=== PATIENT | female | born 1990 | race Caucasian/White ===

== ENCOUNTER 2016-10-18 11:00 | Emergency (ER) | payer BC ==
--- NOTE | ~2016-10-18 | ER ---
PATIENT'S NAME: DOUG ARAUJO [facility] AGE: 26 Y [address] ROOM: [place] [id number] LOCATION: ED ADMIT DATE: 10/18/2016 ER/Outpatient Report DISCHARGE DATE: 10/18/2016 FAMILY PHYSICIAN: Ventura Marley MD ATTENDING PHYSICIAN: Irwin Palacios CHIEF COMPLAINT: Abdominal pain. HISTORY OF PRESENT ILLNESS: The patient states that throughout the day she has had severe abdominal pain, rated 10/10. The pain is located in the right side in the upper abdominal region. It does radiate up and down. She has not taken anything for this at home. She has had some diarrhea associated with this. No one else at home has similar symptoms. She states that it is fluctuating in intensity, but does not ever go away. It is cramp like in nature. PAST MEDICAL HISTORY: Documented on the record and reviewed by me. SOCIAL HISTORY: Documented on the record and reviewed by me. MEDICATIONS: Documented on the record and reviewed by me. ALLERGIES: DOCUMENTED ON THE RECORD AND REVIEWED BY ME. REVIEW OF SYSTEMS: All systems reviewed and negative except as noted in the HPI. PHYSICAL EXAMINATION: VITAL SIGNS: Blood pressure 139/65, pulse 113, respiratory rate is 20, temperature is 97.7, and SpO2 is 99% on room air. Pain is 10/10. GENERAL: Age appropriate female, in no acute distress, lying on her left side in a position on the bed with some moderate pain. NEUROLOGIC: Awake and alert. GCS is 15. No focal deficits or asymmetry on exam. HEENT: Normocephalic and atraumatic. Eyes are PERRL. Oropharynx is clear. NECK: Supple. Trachea is midline. CHEST: Heart is regular rate and rhythm with borderline tachycardia. No murmurs appreciated. Lungs are clear to auscultation bilaterally with no rhonchi, wheezes, or rales. BACK: Nontender to palpation throughout. No CVA tenderness. PATIENT'S NAME: DOUG ARAUJO [facility] AGE: 26 Y [address] ROOM: [place] [address] LOCATION: ED ADMIT DATE: 10/18/2016 ER/Outpatient Report DISCHARGE DATE: 10/18/2016 FAMILY PHYSICIAN: Ventura Marley MD ATTENDING PHYSICIAN: Irwin Palacios ABDOMEN: Soft with mild tenderness in the right upper quadrant without Gutierrez sign. No tenderness at McBurney's point. Obturator and psoas signs are negative. No masses appreciable. Bowel sounds present in all 4 quadrants. EXTREMITIES: Warm and well perfused with no erythema or edema. SKIN: Warm, dry, and intact with no rashes or breakdown. LABORATORY DATA AND X-RAYS: CT scan of the abdomen is without abnormalities per Radiology. Right upper quadrant ultrasound shows no hepatobiliary pathology. Labs are notable for the following. Sodium 140, potassium 4.2, chloride 107, CO2 is 23, BUN is 13, and creatinine 1.0. GFR greater than 60. LFTs are within normal limits. Total bilirubin 0.9, AST is 12, ALT is 20. Amylase and lipase are 40 and 126 respectively. GGT is 20. CRP is 0.81. Procalcitonin is below threshold. WBC is 14.7, hemoglobin 15.6, and platelets of 245. INR is 1.0. Serum lactate is 2.0. Urinalysis with no leukocytes, nitrites, 150 blood on the micro, 0 to 2 blood on the dip, few bacteria, 2 to 5 epithelial cells. Negative test. IMPRESSION: Enteritis with abdominal pain. EMERGENCY DEPARTMENT COURSE: The patient was evaluated as above. Her pain is focused in the upper portion of the abdomen. She does not have urinary symptoms and her presentation is not consistent with vaginitis or torsion. With a negative test, it is highly unlikely the patient has an ectopic . Her labs, ultrasound, and CT scan exclude ureterolithiasis or nephrolithiasis. There is no hepatobiliary pathology appreciated on labs or imaging. At this time, the patient does have some evidence of diarrhea. The course is most consistent with acute food poisoning versus viral. She was given some fluids and Toradol in the emergency department with marked improvement in her symptoms. She will be discharged with tramadol and Zofran. She should follow up with her primary care provider as needed. Return immediately if worse. MD CIARRA [facility]/caleb /[id number] d: 10/18/16 2244 t: 10/21/16 1733, OUTPATIENT REPORT
[~2016-10-18 11:00] MED LIST: ADDERALL XR 2020 MG PO; BACTRIM DS1 TAB PO; CLINDAMYCIN HC300 MG PO; DEPO PROVER150 MG/ML IM; NORCO 5-325 MG1 TAB PO; PERCOCET 7.5-31 EACH PO; SUPERVITE EC CAP1 MG PO; TYLENOL EXTRA500 MG PO
[2016-10-18 11:29] LABS: BILIRUBIN URINE NEGATIVE (NEGATIVE); BLOOD URINE 150 /UL (NEGATIVE); COLOR URINE YELLOW (YELLOW); GLUCOSE URINE NEGATIVE (NEGATIVE); KETONE URINE NEGATIVE (NEGATIVE); LEUKOCYTES URINE NEGATIVE /UL (NEGATIVE); NITRITE URINE NEGATIVE (NEGATIVE); PROTEIN URINE NEGATIVE (NEGATIVE); SPEC GRAVITY URINE 1.015 (1.003-1.035); TURBIDITY URINE CLEAR (CLEAR); UROBILINOGEN URINE NORMAL (NORMAL)
[2016-10-18 11:44] LABS: RBC URINE 0-2 #/HPF (NEGATIVE); WBC URINE 0-2 #/HPF (NEGATIVE)
[2016-10-18 11:45] LABS: BACTERIA URINE FEW (NEGATIVE); MUCUS URINE 2+ (NEGATIVE)
[2016-10-18 11:52] LABS: BASOPHIL % 0.2 %; EOSINOPHIL % 0.1 %; HEMATOCRIT 43.9 % (33.0-46.0); HEMOGLOBIN 15.6 g/dL (11.0-15.0); IMMATURE GRANULOCYTE # 0.1 K/uL (0.0-0.3); IMMATURE GRANULOCYTE % 0.4 %; LYMPHOCYTE % 7.1 %; MCHC 35.5 gm/dL (32.0-36.5); MCV 87.3 fl (83.0-98.0); MONOCYTE # 0.5 K/uL (0.0-1.0); MONOCYTE % 3.5 %; MPV 9.9 fl (9.4-12.4); NEUTROPHIL % 88.7 %; NRBC % 0 /100WBC (0-0.00); PLATELET COUNT 245 K/uL (150-450); RBC 5.03 M/uL (3.50-5.00); RDW-CV 12.5 % (11.9-14.6); WBC 14.7 K/uL (4.0-11.0)
[2016-10-18 11:58] LABS: PTT 27 SECONDS (25-32)
[2016-10-18 12:08] LABS: ALBUMIN 4.9 gm/dL (3.5-5.0); ALK PHOS 62 IU/L (33-138); ALT 20 IU/L (12-78); ANION GAP 14.2 (10.0-19.0); AST 12 IU/L (10-40); BLOOD UREA NITROGEN 13 mg/dL (6-24); CALCIUM 9.1 mg/dL (8.5-10.5); CHLORIDE 107 mMol/L (96-110); CO2 23 mMol/L (22-32); ESTIMATED GFR (MDRD EQUATION) > 60; POTASSIUM 4.2 mMol/L (3.7-5.1); SODIUM 140 mMol/L (135-145); TOTAL BILIRUBIN 0.9 mg/dL (0.0-1.5); TOTAL PROTEIN 8.4 g/dL (6.0-8.4)
== END 2016-10-18 13:00 | disposition disaster alternative care site (69) ==
LOC: GMED 11:00
PROVIDERS: Emergency Medicine
DX: K52.9 Noninfective gastroenteritis and colitis, unspecified (principal)
CPT/HCPCS: J1885

== ENCOUNTER 2017-03-20 12:35 | Emergency (ER) | payer OTHER ==
--- NOTE | ~2017-03-20 | ER ---
PATIENT'S NAME: DOUG ARAUJO [facility] AGE: 27 Y [address] ROOM: [place] [address] LOCATION: [facility] ADMIT DATE: 03/20/2017 ER/Outpatient Report DISCHARGE DATE: 03/20/2017 FAMILY PHYSICIAN: Ventura Marley MD ATTENDING PHYSICIAN: Lenny Workman Time of Arrival: 1238 hours. Time of Exam: 1238 hours. CHIEF COMPLAINT: Vaginal bleeding. HISTORY OF PRESENT ILLNESS: The patient states just prior to arrival while she was at work she noticed a funny feeling in the vaginal area, then had vaginal bleeding. Reports that she will be 12 weeks' as of Friday with twins. She is scheduled to have a cerclage done tomorrow with Dr. Cid. Reports that she is with twins. She is 2, para 1, AB 0. Due date is 10/04/2017. She is unsure of when her last menstrual period was as she was on Depo-Provera to prevent when she became . She denies having any cramping or discomfort. Has not had any pelvic pain. Last ended in normal vaginal delivery. ALLERGIES: NO KNOWN ALLERGIES. CURRENT MEDICATIONS: 1. Zofran. 2. vitamins. PAST SURGERIES: Negative. SOCIAL HISTORY: Benign. Works at [employer] office. Denies having any recent sexual intercourse. Dr. Marley is her primary provider. Dr. Cid is her OB provider. REVIEW OF SYSTEMS: Negative other than those mentioned in the HPI. PHYSICAL EXAMINATION: VITAL SIGNS: She weighed 84 kg. Blood pressure is 144/91, pulse of 109, respirations are 16, temperature of 99.6 tympanic, and O2 saturation was 99% on room air. PATIENT'S NAME: DOUG ARAUJO [facility] AGE: 27 Y [address] ROOM: [place] [address] LOCATION: [facility] ADMIT DATE: 03/20/2017 ER/Outpatient Report DISCHARGE DATE: 03/20/2017 FAMILY PHYSICIAN: Ventura Marley MD ATTENDING PHYSICIAN: Lenny Workman GENERAL: She is awake, alert, and oriented x4. SKIN: [place], warm, and dry. RESPIRATIONS: Even and nonlabored. PELVIC: Did have a small amount of dark red bleeding in the vaginal vault, small clot was found. Cervix opening was located, it is closed at this time. Did culture the opening. The patient tolerated the procedure well. Denied having any cramping with it. EMERGENCY ROOM COURSE: Ultrasound was completed. boiler control technician reports that both heartbeats are within the 160 range. Ultrasound appears normal. Per patient's records, her blood type is O positive. I did call and talk with Dr. Alvarez who was power tong operator. She feels as though the patient can be discharged home on bed rest and follow up with Dr. Cid tomorrow as scheduled. IMPRESSION: 1. Vaginal bleeding. 2. Intrauterine , 11 weeks, twin. PLAN: Home. Bedrest, up to the bathroom only. Fluids. Monitor. Discharged. Did discuss with her not putting anything in the vaginal vault such as tampons. She is to return to the ER if needed, otherwise, keep her appointment tomorrow with Dr. Cid. She verbalized understanding. HERO SYED APRN FOR DO DEANNA FABIAN/caleb /[id number] d: 03/20/17 174 t: 03/21/17 1449, OUTPATIENT REPORT
== END 2017-03-20 13:53 | disposition disaster alternative care site (69) ==
LOC: GMED 12:35
DX: O20.9 Hemorrhage in early pregnancy, unspecified (principal); O30.001 Twin pregnancy, unspecified number of placenta and unspecified number of amniotic sacs, first trimester; Z79.899 Other long term (current) drug therapy; Z3A.11 11 weeks gestation of pregnancy